=== PATIENT | female | born 1975 ===

== ENCOUNTER 2018-08-20 13:12 | Emergency (ER) | payer OTHER ==
[2018-08-20 15:07] LABS: BASO # 0.1 K/uL (0.0-0.2); EOS # 0.1 K/uL (0.0-0.7); EOS % 0.6 % (0.0-4.0); HEMOGLOBIN 13.4 g/dL (11.0-16.0); LYMPH # 1.1 K/uL (1.0-4.3); LYMPH % 9.5 % (20.0-40.0); MEAN CELL VOLUME 81.9 fL (81.0-99.0); MEAN CORPUSCULAR HEMOGLOBIN 26.8 pg (27.0-31.0); MEAN CORPUSCULAR HGB CONC 32.7 g/dL (33.0-37.0); MEAN PLATELET VOLUME 8.8 fL (7.2-11.7); MONO # 0.4 K/uL (0.0-0.8); MONO % 3.5 % (0.0-10.0); NEUT # 10.1 K/uL (1.8-7.0); NEUT % 85.4 % (50.0-75.0); NRBC % 0.1 % (0.0-2.0); PLATELET COUNT 303 K/uL (130-400); RBC 4.99 Mil/uL (3.80-5.20); WHITE BLOOD COUNT 11.8 K/uL (4.8-10.8)
[2018-08-20 15:13] LABS: HCG,QUALITATIVE URINE NEGATIVE (NEGATIVE)
[2018-08-20 15:18] LABS: SQUAMOUS EPITHIAL 2 /hpf (0-5); URINE BACTERIA RARE (<OCC); URINE BILIRUBIN NEGATIVE (NEGATIVE); URINE BLOOD 1+ (NEGATIVE); URINE CLARITY Clear (Clear); URINE COLOR Yellow (YELLOW); URINE GLUCOSE (UA) NORMAL (Normal); URINE LEUKOCYTE ESTERASE NEG Leu/uL (Negative); URINE PROTEIN NEGATIVE (NEGATIVE); URINE UROBILINOGEN NORMAL mg/dL (0.2-1.0)
[2018-08-20 15:21] LABS: ALB/GLOB RATIO 1.3 (1.0-2.1); ALBUMIN 4.6 g/dL (3.5-5.0); BLOOD UREA NITROGEN 12 mg/dL (7-17); CALCIUM 9.1 mg/dl (8.6-10.4); GFR NON-AFRICAN AMERICAN > 60; LIPASE 65 U/L (23-300)
[2018-08-20 15:27] LABS: ALT/SGPT 30 U/L (9-52); AST/SGOT 29 U/L (14-36)
--- NOTE | 2018-08-20 15:29 | C.PDOC ---
History Of Present Illness 42 y/o female presents to the ER complaining of sudden onset of RUQ abdominal pain which began at 5 am today. Patient states that she vomited. Currently, patient denies having abdominal pain, fever, chills, dysuria, hematuria, and co nstipation. Time Seen by Provider: 08/20/18 14:31 Chief Complaint (Nursing): GI Problem History Per: Patient History/Exam Limitations: no limitations Onset/Duration Of Symptoms: Hrs Current Symptoms Are (Timing): Gone Severity: Moderate Past Medical History Reviewed: Historical Data, Nursing Documentation, Vital Signs Vital Signs: Last Vital Signs Temp 98.1 F 08/20/18 13:35 Pulse 84 08/20/18 13:35 Resp 20 08/20/18 13:35 BP 135/84 08/20/18 13:35 Pulse Ox 98 08/20/18 13:35 - Medical History PMH: No Chronic Diseases Other Surgeries: Hx of surgeries Family History: States: No Known Family Hx - Social History Hx Alcohol Use: No Hx Substance Use: No - Immunization History Hx Tetanus Toxoid Vaccination: No Hx Influenza Vaccination: No Hx Pneumococcal Vaccination: No Review Of Systems Except As Marked, All Systems Reviewed And Found Negative. Constitutional: Negative for: Fever, Chills Gastrointestinal: Positive for: Vomiting, Abdominal Pain (currently resolved) Genitourinary: Negative for: Dysuria, Hematuria Physical Exam - Physical Exam Appears: Non-toxic, No Acute Distress Skin: Normal Color, Warm, Dry Head: Atraumatic, Normacephalic Eye(s): bilateral: Normal Inspection Nose: Normal Oral Mucosa: Moist Neck: Supple Chest: Symmetrical Cardiovascular: Rhythm Regular Respiratory: Normal Breath Sounds, No Rales, No Rhonchi, No Wheezing Gastrointestinal/Abdominal: Soft, No Tenderness, No Guarding, No Rebound, Other (obese, (-) Geiger's (-) McBurney's) Neurological/Psych: Oriented x3, Normal Speech ED Course And Treatment - Laboratory Results Result Diagrams: 08/20/18 15:04 08/20/18 15:04 Lab Interpretation: Abnormal (+ mild leukocotosis) Urine POC: Negative (ua neg.) O2 Sat by Pulse Oximetry: 98 (RA) Pulse Ox Interpretation: Normal - Radiology CXR: Interpreted by Me CXR Interpretation: Yes: No Acute Disease - Other Rad abd x 2 X-Ray: Interpreted by Me (+ increased stool R colon) Reevaluation Time: 17:28 Reassessment Condition: Improved (remains asymptomatic) Medical Decision Making Medical Decision Making: abdominal colic, suspicious for biliary colic but w/u neg. Abd films ++ stool R colon c/w constip Disposition Doctor Will See Patient In The: Office Counseled Patient/Family Regarding: Studies Performed, Diagnosis - Disposition Disposition: HOME/ ROUTINE Disposition Time: 17:29 Condition: GOOD Forms: [employer] (German) - Clinical Impression Clinical Impression: Abdominal pain, colicky - Scribe Statement The provider has reviewed the documentation as recorded by the Josi Graham Provider Attestation: All medical record entries made by the José Miguelibandrea were at my direction and personally dictated by me. I have reviewed the chart and agree that the record accurately reflects my personal performance of the history, physical exam, medical decision making, and the department course for this patient. I have also personally directed, reviewed, and agree with the discharge instructions and disposition.
[2018-08-20 15:38] LABS: BANDS 2 % (0-2); EOSINOPHIL 2 % (0-4); LYMPHOCYTE 9 % (20-40); MONOCYTE 2 % (0-10); NEUTROPHIL 85 % (50-75); PLATELET ESTIMATE NORMAL (NORMAL); TOTAL CELLS COUNTED 100
[2018-08-20 18:00] VITALS: BP 129/85; PULSE 73; RESP 16; TEMP 98.5; O2SAT 99
--- NOTE | 2018-08-21 09:11 | RAD ---
Date of service: 08/20/2018 PROCEDURE: Radiographs of the chest and abdomen (obstructive series) HISTORY: abd pain, epigastric colic COMPARISON: No prior. TECHNIQUE: AP radiograph of the chest, with upright and supine radiographs of the abdomen. FINDINGS: CHEST: Lungs: Clear. Cardiovascular: Normal size heart. No pulmonary vascular congestion. There is absence of aortic atherosclerotic calcification on x-ray. Pleura: No pleural fluid. No pneumothorax. Other findings: None. ABDOMEN AND PELVIS: Bowel: Extensive right colonic stool retention present. No evidence of mechanical obstruction. Free air: None. Bones: Unremarkable. Other findings: Inferior left hemipelvic phleboliths IMPRESSION: No pulmonary infiltrate. Extensive right colon stool retention compatible with constipation.. No mechanical obstruction. No free air suggested
== END 2018-08-20 18:00 | disposition home or self-care (01) ==
LOC: C.ER 13:12
DX: R10.11 Right upper quadrant pain (principal)